=== PATIENT | female | born 1965 | race Caucasian/White ===

== ENCOUNTER → 2018-01-16 | Outpatient (CLI) | payer BC ==
[~2018-01-16] MED LIST: BACLOFEN10 MG PO; CALCIUM PO; CARAFATE1 GM/10 ML PO; EVISTA60 MG PO; IMITREX25 MG PO; LIPITOR; LIPITOR20 MG PO; MULTIVITAMINS1 EAC7 PO; PANTOPRAZOLE SO40 MG PO; PROTONIX 40 MG; ZOFRAN PO; [UNRECOGNIZED DRUG - OTHER]; baclofen; celebrex; evista
--- NOTE | 2018-01-16 16:29 | Diagnostic Imaging Report ---
Exam: Ultrasound extremity nonvascular History: Buttox nodule. History of neurofibromatosis. Findings: Transverse and sagittal ultrasonographic images were obtained of the right buttocks region at the palpable site. Comparative images were obtained of the left buttocks. Grayscale and color Doppler imaging was performed. 1.9 x 0.8 x 1.6 cm hypoechoic area in the right buttocks at the palpable site could be due to a lipoma or possibly a neurofibroma. No abnormal fluid collection is seen. Impression: 1.9 x 0.8 x 1.6 cm hypoechoic area in the right buttocks at the palpable site could be due to a lipoma or possibly a neurofibroma. If indicated MRI may be of benefit. Signed by: Dr. Perry Luu M.D. on 01/16/2018 4:25 PM
== END ==
LOC: US 15:49
DX: R22.2 Localized swelling, mass and lump, trunk (principal)
CPT/HCPCS: 76882

== ENCOUNTER → 2018-08-24 | Outpatient (CLI) | payer BC ==
--- NOTE | 2018-08-24 16:30 | Diagnostic Imaging Report ---
Exam: Ultrasound extremity nonvascular History: Increasing palpable nodule in the right gluteal region. History of neurofibromatosis. Comparison: Ultrasound extremity nonvascular 01/16/2018. Technique/Findings: Transverse and sagittal ultrasonographic images were obtained of the right gluteal region at the palpable site. Comparative images were obtained of the left gluteal region. Grayscale and color Doppler imaging was performed. There is a 1.7 x 0.5 x 0.9 cm well-circumscribed hypoechoic nodule in the right gluteal region at the palpable site, previously 1.9 x 0.8 x 1.6 cm. No Doppler flow is demonstrated. No nodularity is demonstrated in the left gluteal region. Impression: Slight interval decrease in size of a right gluteal soft tissue nodule. Findings could represent inflammatory nodule, although lipoma or neurofibroma are possible. MRI would be more sensitive for evaluation. Signed by: Dr. Sergio Damon MD on 08/24/2018 4:27 PM
== END ==
LOC: US 13:53
PROVIDERS: ATTEND Radiology Neuroradiology
DX: Q85.01 Neurofibromatosis, type 1 (principal); C49.9 Malignant neoplasm of connective and soft tissue, unspecified
CPT/HCPCS: 76882

== ENCOUNTER → 2019-12-14 | Day surgery (SDC) | payer BC, OTHER ==
[~2019-12-14] MED LIST changes: +FENTANYL CITRATE/PF 100MCG/2 ML INJ ONE; +FOSAMAX70 MG PO; +HYOSCYAMINE 0.125 MG TAB ONE; +LIDOCAINE HCL 2% LOCAL INJ 5 ML SDV VIAL INJ ONE; +MIDAZOLAM HCL 2 MG/2 ML VIAL ONE; +PROPOFOL IV EMULSION 10 MG/ML 20 ML VIAL ONE; +VIT A PO; +VIT C PO; +VIT D3 PO; +ZINC SULFATE220 MG PO
[2019-12-14 13:35] VITALS: BP 124/76
--- NOTE | 2019-12-14 14:35 | Operative Report ---
DATE OF PROCEDURE: 12/14/2019 SURGEON: Weston Malik MD PROCEDURE: Colonoscopy with biopsies. INDICATIONS FOR COLONOSCOPY: Surveillance colonoscopy, personal history of colon polyps. MEDICATIONS: The patient was done under MAC, please see anesthesiologist's note. PROCEDURE IN DETAIL: With the patient in the left lateral decubitus position, a flexible fiberoptic Olympus colonoscope was inserted into the rectum with ease and advanced all the way to the cecum. It was then withdrawn slowly. Mucosa overlying the cecum, ascending colon, and transverse colon grossly appeared to be within normal limits. Mild patchy inflammatory changes were noted in the left colon and also similar findings were noted in the rectum, and random biopsies were obtained. The scope was then retroflexed into the distal rectum and the area around the dentate line appeared to be within normal limits. The scope was then straightened out, it was subsequently withdrawn, and the patient tolerated the procedure well. IMPRESSION: 1. Mild patchy inflammatory changes, left colon. 2. Proctitis, mild. PLAN: Follow up histology. Start Align one p.o. b.i.d. The patient might benefit from a followup colonoscopy in 5 years. Weston Malik MD [facility] [place] /[id number] cc: Agapito Malik MD
== END | disposition home or self-care (01) ==
LOC: OR 06:14
PROVIDERS: ATTEND Internal Medicine Gastroenterology
DX: Z09 Encounter for follow-up examination after completed treatment for conditions other than malignant neoplasm (principal); K52.9 Noninfective gastroenteritis and colitis, unspecified; K62.89 Other specified diseases of anus and rectum; K29.70 Gastritis, unspecified, without bleeding; K20.9 Esophagitis, unspecified; K21.9 Gastro-esophageal reflux disease without esophagitis; F32.9 Major depressive disorder, single episode, unspecified; Z88.8 Allergy status to other drugs, medicaments and biological substances; Z01.810 Encounter for preprocedural cardiovascular examination; Z01.812 Encounter for preprocedural laboratory examination; Z11.59 Encounter for screening for other viral diseases
CPT/HCPCS: 45380; 93005; J2001; J2250; J2704; J3010; U0002

== ENCOUNTER → 2023-04-10 | Outpatient (REF) | payer BC ==
[~2023-04-10] MED LIST changes: -FENTANYL CITRATE/PF 100MCG/2 ML INJ ONE; -HYOSCYAMINE 0.125 MG TAB ONE; -LIDOCAINE HCL 2% LOCAL INJ 5 ML SDV VIAL INJ ONE; +MELATONIN3 MG PO; -MIDAZOLAM HCL 2 MG/2 ML VIAL ONE; -PROPOFOL IV EMULSION 10 MG/ML 20 ML VIAL ONE; +VESICARE5 MG PO
== END ==
LOC: RAD 13:38
PROVIDERS: ATTEND Internal Medicine
DX: M79.602 Pain in left arm (principal); M79.89 Other specified soft tissue disorders
CPT/HCPCS: 93971

== ENCOUNTER → 2023-08-11 | Outpatient (REF) | payer BC | LOC: RAD 14:46 | PROVIDERS: ATTEND Internal Medicine | DX: Z01.818 Encounter for other preprocedural examination (principal); R06.02 Shortness of breath | CPT/HCPCS: 71046 ==

== ENCOUNTER → 2024-04-07 | Day surgery (SDC) | payer BC ==
[~2024-04-07] MED LIST changes: +FAMOTIDINE 20 MG/2 ML VIAL IV ONE; +FENTANYL CITRATE/PF 100MCG/2 ML INJ ONE; +GLYCOPYRROLATE INJ 0.2 MG/ML VIAL ONE; +LIDOCAINE HCL 2% LOCAL INJ 5 ML SDV VIAL INJ ONE; +METOCLOPRAMIDE HCL 10 MG/2ML VIAL ONE; +MIDAZOLAM HCL 2 MG/2 ML VIAL ONE; +PROPOFOL IV EMULSION 10 MG/ML 20 ML VIAL ONE
[2024-04-07] MEDS: LACTATED RINGER'S 1,000 ML ONE (11:42)
[2024-04-07 13:07] VITALS: TEMP 97.4
[2024-04-07 13:35] VITALS: BP 114/82; PULSE 83; RESP 16; O2SAT 98
[2024-04-13 17:23] LABS: TISSUE TRANSGLUTAMINASE IGA AB <2
[2024-04-13 17:24] LABS: ENDOMYSIAL ANTIBODIES, IGA Negative; IMMUNOGLOBULIN A 278 (81-463)
== END | disposition home or self-care (01) ==
LOC: OR 11:24
PROVIDERS: ATTEND Internal Medicine Gastroenterology
DX: K29.50 Unspecified chronic gastritis without bleeding (principal); K21.00 Gastro-esophageal reflux disease with esophagitis, without bleeding; K22.70 Barrett's esophagus without dysplasia; K44.9 Diaphragmatic hernia without obstruction or gangrene; K21.9 Gastro-esophageal reflux disease without esophagitis; R68.81 Early satiety; Z86.0100 Personal history of colon polyps, unspecified; Z71.3 Dietary counseling and surveillance; R63.4 Abnormal weight loss; I10 Essential (primary) hypertension; Z71.89 Other specified counseling; E78.5 Hyperlipidemia, unspecified; F32.A Depression, unspecified; M81.0 Age-related osteoporosis without current pathological fracture; G43.909 Migraine, unspecified, not intractable, without status migrainosus; Z88.1 Allergy status to other antibiotic agents; Z88.8 Allergy status to other drugs, medicaments and biological substances; Z79.899 Other long term (current) drug therapy; Z86.16 Personal history of COVID-19
CPT/HCPCS: 43239; 82784; 83516; 86256; 93005; J2003; J2250; J2470; J2704; J2765; J3010; J7121

== ENCOUNTER 2024-07-20 13:00 | Outpatient (RCR) | payer BC ==
[~2024-07-20 13:00] MED LIST changes: -FAMOTIDINE 20 MG/2 ML VIAL IV ONE; -FENTANYL CITRATE/PF 100MCG/2 ML INJ ONE; -GLYCOPYRROLATE INJ 0.2 MG/ML VIAL ONE; -LIDOCAINE HCL 2% LOCAL INJ 5 ML SDV VIAL INJ ONE; -METOCLOPRAMIDE HCL 10 MG/2ML VIAL ONE; -MIDAZOLAM HCL 2 MG/2 ML VIAL ONE; -PROPOFOL IV EMULSION 10 MG/ML 20 ML VIAL ONE
== END 2024-07-21 ==
LOC: OT 13:00
PROVIDERS: ATTEND Physician Assistant
DX: M75.82 Other shoulder lesions, left shoulder (principal); M19.212 Secondary osteoarthritis, left shoulder; M25.512 Pain in left shoulder; M25.612 Stiffness of left shoulder, not elsewhere classified; R53.1 Weakness

== ENCOUNTER → 2024-09-08 | Outpatient (REF) | payer BC | LOC: RAD 15:27 | PROVIDERS: ATTEND Internal Medicine Rheumatology | DX: M25.551 Pain in right hip (principal); M89.8X5 Other specified disorders of bone, thigh ==